=== PATIENT | female | born 1980 | race African-American/Black ===

== ENCOUNTER 2016-11-27 23:05 | Emergency (ER) | payer MEDICARE ==
--- NOTE | ~2016-11-27 | CR127 ---
[facility]. [facility] A Service of [facility] RADIOLOGY TEXT RESULTS PATIENT: DAE HAIRSTON LOCATION: SED : 82 UNIT #: [id number] AGE: [address]: JUDY LAND SEX: F ORDER DR: [id number] [place] [id number] MR#: [id number] Acc #: [id number] NAME: DAE HAIRSTON : 1980 SEX: F STUDY DATE/TIME: 11/28/2016 1:35 UNIT: SED ROOM: STUDY DESCRIPTION: CR Foot Complete Min 3 View Rt Attending Physician: Judy Land Ordering Physician: Physician Non-Staff Primary Care Physician: Shantel Brandon A.P.R.N. MEDICAL IMAGING REPORT This report is preliminary unless electronic signature is present. EXAM Right foot series INDICATION Right foot pain after a fall today. PROCEDURE 3 views of the right foot COMPARISON None FINDINGS No fracture or dislocation. IMPRESSION No acute findings. Dictated by... Krish Nuñez M.D. THIS IS AN ELECTRONICALLY VERIFIED REPORT Krish Nuñez M.D. at 11/28/2016 9:58 PM Yong TD: 11/28/2016 09:29 JOB #: [id number] MEDICAL IMAGING REPORT Page 1 of 1
[~2016-11-27 23:05] MED LIST: ACETAMINOPHEN500 M3 PO; AMITRYPTYLINE PO; ANUSOL-HC CREAM30 G1 EXT; CIPRO PO; COLACE PO; DEPRESSION MEDICATIO; DIFLUCAN PO; DOXYCYCLINE PO; FLEXERIL10 MG PO; IBUPROFEN800 MG PO; LORTAB 10-3251 EACH PO; LOTRISONE CREAM45 GM TOP; MEDROL DOSEPAK4 MG DOB; MEDROL DOSEPAK4 MG PO; MEDROL4 MG/DOSE- PO; NAPROSYN500 MG PO; NIFEREX-150 CAP1 CAP PO; ORUDIS75 M1 OP; ORUDIS75 M1 PO; PHENERGAN DM1 ML PO; PREDNISONE PO; PRILOSEC PO; PRILOSEC20 M1 PO; ROBAXIN500 MG PO; TYLOX 5-500 CA1 EACH PO
[2016-11-27] MEDS ORDERED: GRALISE300 MG (23:14)
[2016-11-27] MEDS ORDERED: HYDROCODON-ACE1 EA14 (23:14)
[2016-11-28] MEDS ORDERED: IBUPROFEN800 MG PO (02:31)
== END 2016-11-28 02:31 | disposition home or self-care (01) ==
LOC: SED 23:05
DX: S93.601A Unspecified sprain of right foot, initial encounter (principal); F32.9 Major depressive disorder, single episode, unspecified; F17.210 Nicotine dependence, cigarettes, uncomplicated; R03.0 Elevated blood-pressure reading, without diagnosis of hypertension; W10.9XXA Fall (on) (from) unspecified stairs and steps, initial encounter; Z79.899 Other long term (current) drug therapy; Y92.89 Other specified places as the place of occurrence of the external cause
CPT/HCPCS: 29405; 73630; 99283